=== PATIENT | female | born 1975 | race American Indian/Alaskan Native ===

== ENCOUNTER 2018-12-22 12:36 | Emergency (ER) | payer BC, MEDICAID ==
--- NOTE | 2018-12-22 12:59 | Emergency Department Report ---
Blank Doc - Documentation Documentation: This is a 43-year-old female that presents with left sided face pressure and s ome muscle weakness to left face. Denies any history of stroke. Denies any extremities weakness. Denies any headache. Denies any other complaints. This initial assessment diagnostic orders/clinical plan/treatment(s) is/are subject to change based on patient's health status, clinical progression and re- assessment by fellow clinical providers in the ED. Further treatment and workup at subsequent clinical providers discretion. Patient/guardians urged not to elope from ED s their condition may be serious if not clinically assessed and managed. Initial orders include: 1-Patient sent to [facility] for further evaluation and treatment 2- CT of head <NILESH JENKINS - Last Filed: 12/22/18 12:56> - Documentation Documentation: [id number] was done with this patient. The patient has a complete seventh nerve palsy on the right that involves the forehead and upper eyelid. This is most consistent with Cespedes's palsy. CT has been canceled and the patient will be treated with appropriate medications. <SABRINA MIGUEL - Last Filed: 12/22/18 13:25>
[2018-12-22 13:00] VITALS: BP 158/102
--- NOTE | 2018-12-22 13:27 | Emergency Department Report ---
ED Neuro Deficit HPI - General Chief Complaint: Neuro Symptoms/Deficit Stated Complaint: (L) SIDE OF FACE TWISTED Time Seen by Provider: 12/22/18 12:56 Source: patient Mode of arrival: Ambulatory Limitations: No Limitations - History of Present Illness Initial Comments: R side facial paralysis since yesterday no recent illness no extremity weakness/numbness hx HTN only -: Sudden, days(s) (1) Location: right face Presenting Symptoms: Present: Facial Droop/Numbness History of same: No Place: home Severity: mild Quality: weak, numb Improves With: none Worsens With: none On Anticoagulants: No Context: sudden onset Associated Symptoms: denies other symptoms Treatments Prior to Arrival: none - Related Data Home Medications: Home Medications Medication Instructions Recorded Confirmed Last Taken Lisinopril/Hydrochlorothiazide 1 tab PO DAILY 02/09/15 02/09/15 Unknown Motrin 800 mg PO TID 02/09/15 02/09/15 Unknown Previous Rx's Medication Instructions Recorded Last Taken Type Prednisone [predniSONE 10 mg 10 mg PO .TAPER #1 tab.ds.pk 12/22/18 Unknown Rx (6-Day Pack, 21 Tabs)] Valacyclovir HCl [Valtrex] 1,000 mg PO TID #21 tablet 12/22/18 Unknown Rx Allergies/Adverse Reactions: Allergies Allergy/AdvReac Type Severity Reaction Status Date / Time No Known Allergies Allergy Unverified 02/09/15 03:57 ED Review of Systems ROS: Stated complaint: (L) SIDE OF FACE TWISTED Other details as noted in HPI Comment: All other systems reviewed and negative Neurological: as per HPI, numbness ED Past Medical Hx - Past Medical History Previous Medical History?: Yes Hx Hypertension: Yes - Surgical History Past Surgical History?: Yes Additional Surgical History: tubal ligation, tonsilectomy, right ankle - Social History Smoking Status: Former Smoker Substance Use Type: Alcohol - Medications Home Medications: Home Medications Medication Instructions Recorded Confirmed Last Taken Type Lisinopril/Hydrochlorothiazide 1 tab PO DAILY 02/09/15 02/09/15 Unknown History Motrin 800 mg PO TID 02/09/15 02/09/15 Unknown History Prednisone [predniSONE 10 mg 10 mg PO .TAPER #1 tab.ds.pk 12/22/18 Unknown Rx (6-Day Pack, 21 Tabs)] Valacyclovir HCl [Valtrex] 1,000 mg PO TID #21 tablet 12/22/18 Unknown Rx ED Neuro Physical Exam - General Limitations: No Limitations General appearance: alert, in no apparent distress Suspected Stroke: No - Head Head exam: Present: atraumatic, normocephalic - Eye Eye exam: Present: normal appearance, PERRL, EOMI - ENT ENT exam: Present: mucous membranes moist - Neck Neck exam: Present: normal inspection - Respiratory Respiratory exam: Present: normal lung sounds bilaterally. Absent: respiratory distress - Cardiovascular Cardiovascular Exam: Present: regular rate, normal rhythm. Absent: systolic murmur, diastolic murmur, rubs, gallop - GI/Abdominal GI/Abdominal exam: Present: soft, normal bowel sounds - Extremities Exam Extremities exam: Present: normal inspection - Back Exam Back exam: Present: normal inspection - Neurological Exam Neurological exam: Present: alert, oriented X3, normal gait, reflexes normal. Absent: CN II-XII intact (R CN 7 palsy) - Psychiatric Psychiatric exam: Present: normal affect, normal mood - Skin Skin exam: Present: warm, dry, intact, normal color. Absent: rash ED Course Vital Signs 12/22/18 12/22/18 12:58 13:25 Temperature 98.3 F Pulse Rate 94 H Respiratory 18 15 Rate Blood Pressure 158/102 [Right] O2 Sat by Pulse 98 Oximetry - Medical Decision Making complete R CN VII palsy c/w Soper palsy on exam full neuro otherwise normal strength 5/5 x 4 cerebellar function intact no signs CVA- no indication for imaging supportive care discussed - Differential Diagnosis Soper palsy, CVA unlikely - Thrombolytic Inclusion/Exclusion Thrombolytic Exclusion Criteria: Onset of Symptoms Unknown, Symptom Onset > 3 Hours Thrombolytic Inclusion Criteria: Age 18 or Older Critical care attestation.: If time is entered above; I have spent that time in minutes in the direct care of this critically ill patient, excluding procedure time. ED Disposition Clinical Impression: Cespedes's palsy Disposition: DC-01 TO HOME OR SELFCARE Is pt being admited?: No Condition: Good Instructions: Cespedes Palsy (ED) Prescriptions: Prednisone [predniSONE 10 mg (6-Day Pack, 21 Tabs)] 10 mg PO .TAPER #1 tab.ds.pk Valacyclovir HCl [Valtrex] 1,000 mg PO TID #21 tablet Referrals: NATHALIE DUMONT MD [Primary Care Provider] - 3-5 Days Time of Disposition: 13:27
== END 2018-12-22 13:34 | disposition home or self-care (01) ==
LOC: ED 12:36
DX: G51.0 Bell's palsy (principal); I10 Essential (primary) hypertension; Z90.89 Acquired absence of other organs; Z98.51 Tubal ligation status; Z87.891 Personal history of nicotine dependence
CPT/HCPCS: 99281